=== PATIENT | male | born 1950 | race Caucasian/White ===

== ENCOUNTER 2017-03-19 07:00 | Inpatient (IN) | payer OTHER, MEDICARE ==
[~2017-03-19] VITALS: Ht 160 cm; Wt 103.4 kg
[2017-03-19] MEDS ORDERED: FERROUS SULFAT325 M3 PO (15:40)
[2017-03-19] MEDS ORDERED: METFORMIN HCL500 M3 PO (15:41)
[2017-03-19] MEDS ORDERED: OMEPRAZOLE20 M2 PO (15:41)
[2017-03-19] MEDS ORDERED: PANTOPRAZOLE SO40 M1 PO (15:41)
[2017-03-19] MEDS ORDERED: XALATAN2.5 ML OPH (15:41)
[2017-03-19] MEDS ORDERED: LISINOPRIL10 M1 PO (15:41)
[2017-03-19] MEDS ORDERED: SIMVASTATIN20 M2 PO (15:42)
[2017-03-19] MEDS ORDERED: SALINE EYE DROPS (15:42)
[2017-03-19] MEDS ORDERED: DYAZIDE 37.5-21 EACH PO (15:42)
[2017-03-21] MEDS ORDERED: ASPIRIN EC325 M2 PO (15:56)
[2017-03-21] MEDS ORDERED: COLACE100 M1 PO (15:56)
[2017-03-21] MEDS ORDERED: DILAUDID2 M1 PO (15:57)
[2017-03-21] MEDS ORDERED: MIRALAX17 G1 PO (15:57)
--- NOTE | 2017-03-21 16:03 | Patient Discharge Instructions ---
Discharge Instructions General Discharge Information You were seen/treated for: Right hip pain related to osteoarthritis You had these procedures: Right total hip replacement Watch for these problems: Increasing pain despite the use of pain medication Increasing redness, warmth, swelling Drainage of any type from incision Inability to bear weight on right leg Persistent nausea and vomitting Fever greater than 101.5 degrees Do not soak the wound: No No bath, but you may shower: Yes Other wound care: Keep wound clean and dry. No ointments of any type on or near incision at any time. No exceptions. Your dressing will be changed on the second day following your surgery, daily dry dressing changes are recommended thereafter Special Instructions: Aspirin: This is to help protect you against developing a blood clot. You will be taking 325 mg twice daily. Please take this with food to help protect your stomach. You will be on this aspirin for 4 weeks total. Constipation: Pain medications can be very constipating. Please take colace and miralax as directed to help prevent constipation. You may stop these medications if you develop loose stool or diarrhea. Diet Continue normal diet: Yes Recommended Diet: Heart Healthy Additional DIET Information: Advance as tolerated Activity Full Activity/No Limits: No Activity Self Limited: Yes Pounds, do NOT lift more than: 10 Activity Limited to: Weight bear as tolerated Acute Coronary Syndrome Inclusion Criteria At DC or during hospital stay patient has or had the following: ACS DIAGNOSIS No Discharge Core Measures Meds if any: Prescribed or Continued at Discharge Meds if any: NOT Prescribed or Continued at Discharge Congestive Heart Failure Inclusion Criteria At DC or during hospital stay patient has or had the following: CHF DIAGNOSIS No Discharge Core Measures Meds if any: Prescribed or Continued at Discharge Meds if any: NOT Prescribed or Continued at Discharge Cerebrovascular accident Inclusion Criteria At DC or during hospital stay patient has or had the following: CVA/TIA Diagnosis No Discharge Core Measures Meds if any: Prescribed or Continued at Discharge Meds if any: NOT Prescribed or Continued at Discharge Venous thromboembolism Inclusion Criteria VTE Diagnosis No VTE Type NONE VTE Confirmed by (Test) NONE Discharge Core Measures - Per Current guidelines, there needs to be overlap - treatment for the first 5 days of Warfarin therapy. - If discharged on Warfarin prior to 5 days of - overlap therapy, the patient will need to be - assessed for post discharge needs including - *Post discharge parental anticoagulation - *Warfarin and/or parental anticoagulation education - *Follow up date to check INR post discharge At least 5 days overlap therapy as Inpatient No Meds if any: Prescribed or Continued at Discharge Note: Overlap Therapy is Warfarin and Anticoagulant Meds if any: NOT Prescribed or Continued at Discharge
--- NOTE | 2017-03-21 16:05 | Admission Core Measures ---
Admission Meds I reviewed the following Meds: Current Medications Sig/Carol Start time Last Medication Dose Stop Time Status Admin Acetaminophen 975 MG ONCE 03/21 0000 NR (Tylenol) 03/21 2359 Atorvastatin Calcium 10 MG 1700 03/21 1700 AC (Lipitor) Cefazolin Sodium 2,000 MG ONCE 03/21 0000 NR (Kefzol-Ancef Inj) 03/21 235 Ferrous Sulfate 325 MG DAILY 03/22 1000 AC (Feosol) Latanoprost 1 GTT QPM 03/21 2200 AC (Xalatan) Lisinopril 10 MG DAILY 03/22 1000 AC (Prinivil) Metformin HCl 500 MG 0800,17003/21 1700 AC (Glucophage) Omeprazole 40 MG DAILY AC 03/22 0700 AC (Prilosec) Oxycodone HCl 10 MG ONCE 03/21 0000 NR (Roxicodone) 03/21 2359 Triamterene/HCTZ 1 CAP DAILY 03/22 1000 AC (Dyazide) Acute Coronary Syndrome Inclusion Criteria ACS Diagnosis No Inpatient Core Measures LDL Reminder: If No, please order W/I first 24hr of stay Congestive Heart Failure Inclusion Criteria CHF Diagnosis No Cerebrovascular accident Inclusion Criteria CVA/TIA Diagnosis No Inpatient Core Measures Bedside Swallow Eval Reminder: If BSE failed, place ST order Antithrombotic Reminder: Order Antithrombotic Medication by end of day 2 Antithrombotic Reminder: Document Reason Antithrombotic Not ordered by end of day 2 AFIB/Flutter Reminder: If Present, add to problem list AFIB/Flutter Reminder: Order Anticoag Medication for pts with AFIB/Flutter Atherosclerosis Reminder: If Present, add to problem list LDL Reminder: If No, please order W/I first 24hr of stay PT Order Reminder: If No, please order Venous thromboembolism Inpatient Core Measures VTE Risk Factors: Age > 40, Surgery No [facility] VTE prophylaxis d/t No contraindications No VTE Pharm Prophylaxis d/t No contraindications Inclusion Criteria - Per Current guidelines, there needs to be overlap - treatment for the first 5 days of Warfarin therapy. - Parenteral Anticoagulation (IV or SC) needs to be - given along with Warfarin therapy. VTE Diagnosis No VTE Type NONE VTE Confirmed by (Test) NONE Problem List As ranked by this Provider includes Assessment & Plan 1. Unilateral primary osteoarthritis, right hip HOME MEDS Home Med List Ferrous Sulfate 325 MG (65 MG IRON) TABLET 1 TAB PO DAILY ANEMIA (Reported) Latanoprost (Xalatan) 0.005 % DROPS 1 GTT OPH QPM GLAUCOMA (Reported) Lisinopril 10 MG TABLET 1 TAB PO DAILY HTN (Reported) Metformin HCl 500 MG TABLET 1 TAB PO BID DM II (Reported) Omeprazole 20 MG CAPSULE.DR 1 CAP PO DAILY GERD (Reported) Pantoprazole Sodium 40 MG TABLET.DR 1 TAB PO DAILY GERD (Reported) Simvastatin (Simvastatin*) 20 MG TABLET 1 TAB PO QPM CHOLESTEROL (Reported) Triamterene/Hydrochlorothiazid (Dyazide 37.5-25 Capsule) 37.5 MG-25 MG CAPSULE 1 CAP PO DAILY HTN (Reported)
--- NOTE | 2017-03-21 16:13 | Surgical Discharge Summary ---
Visit Information Visit Dates Admission Date: 03/21/17 Discharge Date: 03/24/17 History of Present Illness Chief Complaint: Right hip pain related to osteoarthritis Medical History Isolation History: Standard Surgical History Pertinent Surgical History: non-contributory Review of Systems: See H&P Hospital Course Course Attending Physician: RONN GUZMAN MD Primary Care Physician: VERONA CROSS,[facility] Course: Jalen was admitted to the hospital on 03/21/2017 for an elective right total hip replacement. He tolerated the procedure well and was transferred to a general surgical floor. There, his vital signs remained stable and within normal limits and his neurovascular status remained intact. His diet was advanced and tolerated. He voided spontaneously. His pain was adequately controlled with the use of oral pain medication. He was evaluated and treated by physical therapy. He was deemed [facility] Allergies: Coded Allergies: Penicillins (CHILDHOOD 03/19/17) Disposition Summary Disposition Principal Diagnosis: Right hip unilateral primary osteoarthritis Additional Diagnosis: None Discharge Disposition: SNF Discharge Instructions General Discharge Information Code Status: Full Code Patient's Diet: Heart healthy, advance as tolerated Patient's Activity: WBAT Follow-Up Instructions/Appts: Follow up with Dr. Guzamn in 6 weeks from date of surgery Medications at Discharge Discharge Medications: Stop taking the following medications: Pantoprazole Sodium (Pantoprazole Sodium) 40 MG TABLET. ORAL DAILY Continue taking these medications: Ferrous Sulfate (Ferrous Sulfate) 325 MG (65 MG IRON) TABLET 1 Tablet ORAL DAILY Latanoprost (Xalatan) 0.005 % DROPS 1 Drop In the eye Every night Lisinopril (Lisinopril) 10 MG TABLET 1 Tablet ORAL DAILY Metformin HCl (Metformin HCl) 500 MG TABLET 1 Tablet ORAL TWICE DAILY Omeprazole (Omeprazole) 20 MG CAPSULE. 1 Capsule ORAL DAILY Simvastatin (Simvastatin*) 20 MG TABLET 1 Tablet ORAL Every night [SALINE EYE DROPS] as needed for DRY EYE Triamterene/Hydrochlorothiazid (Dyazide 37.5-25 Capsule) 37.5 MG-25 MG CAPSULE 1 Capsule ORAL DAILY Start taking the following new medications: Aspirin (Ecotrin*) 325 MG TABLET. 1 Tablet ORAL TWICE DAILY Qty = 60 No Refills Docusate Sodium (Colace) 100 MG CAPSULE 1 Capsule ORAL TWICE DAILY Qty = 14 No Refills Instructions: DISCONTINUE USE IF YOU DEVELOP LOOSE STOOL OR DIARRHEA Hydromorphone HCl (Dilaudid) 2 MG TABLET 1-2 Tablet ORAL EVERY 4-6 HOURS as needed for PAIN Qty = 36 No Refills Polyethylene Glycol 3350 (Miralax) 17 GRAM POWD.PACK 1 Packet ORAL DAILY Qty = 7 No Refills Instructions: dissolve in water, DISCONTINUE USE IF YOU DEVELOP LOOSE STOOL OR DIARRHEA
--- NOTE | 2017-03-21 17:46 | Operative Report ---
Operative/Inv Procedure Report Surgery Date: 03/21/17 Name of Procedure: Right total hip replacement Pre-Operative Diagnosis: Primary right hip DJD Post-Operative Diagnosis: Same Estimated Blood Loss: 300 Surgeon/Central Control Room Operator: MEGAN BONE,RONN Newell Anesthesia: block Operative/Procedure Note Note: Description of Procedure: The patient was taken to the operating room and positively identified. After induction of spinal anesthesia and administration of appropriate pre-operative antibiotics, the patient was positioned supine on the operating room table and all bony prominences were well padded. After performing a surgical timeout, the right lower extremity was prepped and draped in the usual sterile fashion. A direct anterior approach was made to the right hip. The incision was carried sharply through superficial soft tissues to the level of the fascia. Meticulous hemostasis was maintained with Bovie electocautery. The fascia over the tensor fascia leeroy muscle was opened sharply and the interval between the TFL and the sartorius was entered bluntly taking care to stay lateral to the lateral femoral cutaneous nerve. Retractors were placed around the femoral neck and the pericapsular fat was identified. The ascending branches of the lateral femoral circumflex vessels were identified and carefully coagulated. The pericapsular fat and anterior capsule were then resected. A napkin ring osteotomy was performed and the femoral head was removed without difficulty. Attention was then turned to the acetabulum. After appropriate placement of retractors, the acetabulum was exposed. Soft tissue was cleaned from the acetabular margin and notch. Overhanging osteophytes were removed and the teardrop was exposed. The acetabulum was then sequentially reamed to accept a 60 mm Joseph Tritanium hemispherical solid back shell. This was impacted into place in the appropriate position and fitted with a 36 mm Trident X3 zero degree polyethylene insert. Attention was then turned to the femur. After performing the appropriate ligament releases, the proximal femur was exposed. It was then sequentially broached to accept a size 9 Medora secure fit advanced 127 stem. This was trialed for leg length and stability. The trial component was removed and the final component was impacted into place. The trunnion was carefully cleaned and fit with a 36 mm, +0 Biolox delta ceramic femoral head. The hip was reduced and put through a full range of motion and found to be stable. The articular space was then irrigated with sterile saline. The periarticular soft tissues were infilitrated with Marcaine. The fascial layer was closed with interrupted #1 vicryl suture and the skin was re-approximated with interrupted 2 -0 vicryl. The skin was closed with a running 3-0 V-Lock suture. Steri-strips and a sterile dressing were applied. The patient was awakened and taken to the recovery room in satisfactory condition.
--- NOTE | 2017-03-21 18:56 | RADIOLOGY REPORT ---
EXAMINATION: XR HIP, RIGHT CLINICAL INFORMATION: Status post total right hip arthroplasty. COMPARISON: No relevant prior studies are available for comparison. TECHNIQUE: AP and crosstable lateral views of the right hip. FINDINGS: Total right hip arthroplasty in the expected position. No acute hardware fracture. No perihardware lucency. Subcutaneous air within the lateral soft tissues. No abnormal soft tissue calcification or radiopaque foreign body. IMPRESSION: Total right hip arthroplasty in the expected position. No radiopaque foreign body. Subcutaneous air within the lateral soft tissues.
[2017-03-21 20:42] VITALS: BP 122/72
--- NOTE | 2017-03-21 22:52 | PN- Orthopedic ---
Subjective Subjective: poc s/p right willi no complaints at this time Objective Vital Signs and I&Os Vital Signs Date Time Temp Pulse Resp B/P B/P Pulse O2 O2 Flow FiO2 Mean Ox Delivery Rate 03/21 2105 95 Nasal 2.0L Cannula 03/21 2042 98.5 64 16 122/72 95 Nasal 2.0L Cannula Physical Exam: cv: rrr lungs: clear abd: soft, +bs ext: rigth thigh soft drsg dry distal cms intact bilat Assessment/Plan Assessment/Plan ortho stable plan cont current regime Core Measures/Miscellaneous Venous Thromboembolism VTE Risk Factors: Age > 40, Obesity, Surgery VTE Contraindications: No Contraindications VTE Diagnosis: No VTE Type: NONE VTE Confirmed by (Test): NONE Beta Kaylee Is Beta Kaylee a Home Med? No Antibiotics Is Patient on Antibiotics? Yes
[2017-03-21 23:16] VITALS: BP 118/80
[2017-03-22] VITALS (7 sets, daily range): BP systolic 100–112; BP diastolic 52–80
[2017-03-22 08:56] LABS: ABSOLUTE BASOPHIL COUNT 0 /CUMM (0.0-0.2); ABSOLUTE EOSINOPHIL COUNT 0 /CUMM (0.0-0.7); ABSOLUTE GRANULOCYTE CT 11.1 /CUMM (1.4-6.5); ABSOLUTE LYMPH COUNT 0.7 /CUMM (1.2-3.4); ABSOLUTE MONOCYTE COUNT 0.9 /CUMM (0.10-0.60); BASOPHIL % 0 % (0.0-2.0); EOSINOPHIL % 0 % (0-5); GRANULOCYTE % 87.2 % (42.2-75.2); MEAN CORPUSCULAR HGB 30.5 PG (27.0-31.0); MEAN CORPUSCULAR HGB CONC 33.9 G/DL (33.0-37.0); MEAN PLATELET VOLUME 8.9 FL (7.4-10.4); PLATELET COUNT 178 /CUMM (130-400); RBC DISTRIBUTION WIDTH 13.5 % (11.5-14.5); RED BLOOD CELL CT 4.11 /CUMM (4.70-6.10)
--- NOTE | 2017-03-22 10:07 | PN- Orthopedic ---
Subjective Subjective: No acute overnight events reported. Pain well controlled. No chest pain, shortness of breath, and difficulty breathing. No nausea and vomitting. Tolerating diet. Voiding. Ambulated with PT. Objective Vital Signs and I&Os Vital Signs Date Time Temp Pulse Resp B/P B/P Pulse O2 O2 Flow FiO2 Mean Ox Delivery Rate 03/22 0910 57 110/60 03/22 0742 97.7 57 20 110/60 91 Room Air 03/22 0355 98.4 61 18 108/60 94 CPAP 03/22 0230 92 CPAP Room Air 03/22 0041 98.5 63 20 112/66 92 CPAP 03/22 0039 98 Nasal 3.0L Cannula 03/21 2316 97.6 75 20 118/80 96 Nasal Cannula 03/21 2105 95 Nasal 2.0L Cannula 03/21 2042 98.5 64 16 122/72 95 Nasal 2.0L Cannula Intake & Output 03/22 1600 03/22 0800 03/22 0000 03/21 1600 03/21 0800 03/21 0000 Intake Total 840 240 Output Total 550 600 Balance 290 -360 Intake, IV 600 Intake, Oral 240 240 Output, Urine 550 600 Patient 228 lb Weight Weight Reported by Patient Measurement Method Physical Exam: General: Alert, mild dementia, no distress Cardiac: RRR, s1s2 Pulm: CTA bilaterally Abdomen: Obese, non-tender, non-distended Extremities: Moves all extremities, distal sensation intact. Motor intact. Skin warm and well perfused. DP pulses palpable. No peripheral edema. Bilateral calves soft and non-tender Surgical site: Right hip, dressing dry and intact, thigh compartment soft Assessment/Plan Assessment/Plan This is a 66 year old male, POD 1, s/p R THR. PMH significant for dementia, plan for short term rehab following discharge from hospital -DC iv fluids today -Continue current pain regimen -Continue OOB, PT treatments, can WBAT -ASA 325 bid for dvt ppx -Continue diet as tolerated -Will change dressing tomorrow Core Measures/Miscellaneous Venous Thromboembolism VTE Risk Factors: Age > 40, Obesity, Surgery VTE Contraindications: No Contraindications VTE Diagnosis: No VTE Type: NONE VTE Confirmed by (Test): NONE Beta Kaylee Is Beta Kaylee a Home Med? No Antibiotics Is Patient on Antibiotics? Yes
[2017-03-22 10:20] LABS: WHITE BLOOD CELL COUNT 12.7 /CUMM (4.8-10.8)
[2017-03-23 06:30] VITALS: BP 124/68
--- NOTE | 2017-03-23 07:17 | PN- Orthopedic ---
Subjective Subjective: POD#2 S/P RIGHT KENZIE NO MAJOR ISSUES OVERNIGHT COMFORTABLE NOW Objective Vital Signs and I&Os Vital Signs Date Time Temp Pulse Resp B/P B/P Pulse O2 O2 Flow FiO2 Mean Ox Delivery Rate 03/23 0630 98.4 72 20 124/68 97 Room Air 03/22 2229 99.0 88 20 108/52 91 Room Air 03/22 1435 97.7 69 18 100/70 96 Room Air 03/22 1433 97.7 69 20 100/70 95 Room Air 03/22 1130 98.5 94 20 110/80 96 Room Air 03/22 1052 Room Air Room Air 03/22 1044 Room Air Room Air 03/22 1000 Room Air 03/22 0910 57 110/60 03/22 0742 97.7 57 20 110/60 91 Room Air Intake & Output 03/23 0800 03/23 0000 03/22 1600 03/22 0800 03/22 0000 03/21 1600 Intake Total 150 480 705 840 240 Output Total 300 550 600 Balance 150 480 405 290 -360 Intake, IV 225 600 Intake, Oral 150 480 480 240 240 Number 0 Bowel Movements Output, Urine 300 550 600 Patient 228 lb Weight Weight Reported by Patient Measurement Method Physical Exam: CV: RRR LUNGS: CLEAR ABD: SOFT, +BS EXT: DRSG CHANGED, WOUND C/D/I NO CALF TENDERNESS BILAT DISTAL CMS INTACT Assessment/Plan Assessment/Plan ORTHO STABLE PLAN CONT OOB WITH PT SNF IN AM Core Measures/Miscellaneous Venous Thromboembolism VTE Risk Factors: Age > 40, Obesity, Surgery VTE Contraindications: No Contraindications VTE Diagnosis: No VTE Type: NONE VTE Confirmed by (Test): NONE Beta Kaylee Is Beta Kaylee a Home Med? No Antibiotics Is Patient on Antibiotics? Yes
--- NOTE | 2017-03-23 13:18 | NUR ---
PHYSICAL THERAPY ATTEMPTED TO AMBULATE PATIENT, PT FELT DIZZY, PT BROUGHT TO BED, BP CHECKED @ 90/58, PA RASHEED AWARE, WILL CONTINUE TO MONITOR.
[2017-03-23 14:05] VITALS: BP 90/58
[2017-03-23 16:26] VITALS: BP 104/50
[2017-03-23 23:34] VITALS: BP 102/58
[2017-03-24 06:53] VITALS: BP 100/56
--- NOTE | 2017-03-24 10:36 | PN- Orthopedic ---
Subjective Subjective: Patient's pain is now well controlled and he is feeling well. He has no complaints. Objective Vital Signs and I&Os Vital Signs Date Time Temp Pulse Resp B/P B/P Pulse O2 O2 Flow FiO2 Mean Ox Delivery Rate 03/24 0923 79 118/60 03/24 0653 98.5 79 20 100/56 91 Room Air 03/23 2334 99.4 83 20 102/58 92 Room Air 03/23 1626 98.8 81 20 104/50 91 Room Air 03/23 1405 98.1 94 20 90/58 93 Room Air Intake & Output 03/24 1600 03/24 0800 03/24 0000 03/23 1600 03/23 0803/23 0000 Intake Total 220 500 600 150 480 Output Total 500 1 Balance -280 499 600 150 480 Intake, Oral 220 500 600 150 480 Number 0 Bowel Movements Output, Stool 1 Output, Urine 500 Physical Exam: Well-developed well-nourished no apparent distress. HEENT: Atraumatic, extraocular motion intact Neck: Supple, no lymphadenopathy Respiratory: No respiratory distress Extremities: No edema RIGHT lower extremity hip dressing in place, Dressing clean dry and intact with minimal bloody staining, small superficial skin tear medial distal wound appears to be from tape, this was dressed with Telfa Incision without erythema Mild thigh edema No signs of infection. No shortening or rotation Hip range of motion is limited and without unexpected pain Neurovascularly intact distally Bilateral calves are supple, nontender. Neuro: Alert and oriented x3 Psych: Mood affect normal, normal memory normal judgment. Skin: Warm and dry, no rash on exposed skin Assessment/Plan Assessment/Plan Postop day #3 status post right total hip arthroplasty anterior approach. The patient is stable for discharge to [facility] facility today. Continue pain medication, aspirin for DVT prophylaxis, follow-up with orthopedist in 6 weeks Core Measures/Miscellaneous Venous Thromboembolism VTE Risk Factors: Age > 40, Obesity, Surgery VTE Contraindications: No Contraindications VTE Diagnosis: No VTE Type: NONE VTE Confirmed by (Test): NONE Beta Kaylee Is Beta Kaylee a Home Med? No Antibiotics Is Patient on Antibiotics? Yes
[2017-03-24 11:16] VITALS: BP 118/60
== END 2017-03-24 11:48 | DRG 470 ==
LOC: SDA 07:00 → 2NA 03-21 03:37 → SDA 03-21 03:37 → ENRESERV 03-21 18:27 → 2NA 03-21 19:55 → ENPENDDIS 03-24 11:15 → 2NA 03-24 11:48
PROVIDERS: Nurse Practitioner; ADMIT Orthopaedic Surgery
PROC: 0SR904A Replacement of Right Hip Joint with Ceramic on Polyethylene Synthetic Substitute, Uncemented, Open Approach (ICD-10-PCS; principal; 2017-03-21)
DX: M16.11 Unilateral primary osteoarthritis, right hip (principal); Z68.41 Body mass index [BMI] 40.0-44.9, adult; I10 Essential (primary) hypertension; E66.9 Obesity, unspecified; F41.9 Anxiety disorder, unspecified; F79 Unspecified intellectual disabilities; E78.5 Hyperlipidemia, unspecified; G47.33 Obstructive sleep apnea (adult) (pediatric); K44.9 Diaphragmatic hernia without obstruction or gangrene; E11.9 Type 2 diabetes mellitus without complications; H40.9 Unspecified glaucoma; Z79.84 Long term (current) use of oral hypoglycemic drugs
CPT/HCPCS: 2NASP; 36415; 73502-RT; 82436; 88304; 97110-GO; 97116-GO; 97161-GP; 97165-GO; 97530-GO; J0690; J0735; J2405; J2550; J7042